=== PATIENT | male | born 1940 | race Caucasian/White ===

== ENCOUNTER 2022-10-21 14:01 | Observation (INO) ==
[2022-10-21 14:42] LABS: ABS Lymphocytes 0.5 10^3/uL (1.0-4.8); ABS Monocytes 0.7 10^3/uL (0.0-1.1); ABS Neutrophils 3.9 10^3/uL (1.5-7.6); Eosinophil % 0.9 %; Hemoglobin 13.5 g/dL (13.2-16.3); Lymphocyte % 9.3 %; Mean Corpuscular Hemoglobin 29.5 pg (27-33); Mean Corpuscular Hgb Conc 33.8 g/dL (31-36); Mean Corpuscular Volume 87.3 fL (80-97); Platelet Count 152 10^3/uL (150-450); Red Blood Count 4.58 10^6/uL (4.06-5.63); Red Cell Distribution Width 15.1 % (12-17); White Blood Count 5.1 10^3/uL (3.6-10.2)
[2022-10-21] MEDS ORDERED: Azithromycin 500 mg/250 ml NS 500 MG/250 ML BAG IVPB ONE (14:47)
[2022-10-21] MEDS ORDERED: cefTRIAXone 1 gm/50 mL D5W 1 GM/50 ML BAG IV ONE (14:47)
[2022-10-21] MEDS ORDERED: Lactated Ringers 1000 ml BAG 1,000 ML IV ONE (14:47)
[2022-10-21 14:49] LABS: INR 1.5 (0.88-1.18)
[2022-10-21] MEDS ORDERED: Albuterol 2.5mg/3 ml (0.083%) NEB.SOLN INH ONE ×2 (14:51→20:45)
[2022-10-21 14:54] LABS: Urine Appearance Clear; Urine Bilirubin Negative (Negative); Urine Blood 1+ (Negative); Urine Color Yellow; Urine Glucose 1+(50 mg/dL) (Negative); Urine Ketones Negative (Negative); Urine Nitrite Negative (Negative); Urine Protein 1+(30 mg/dL) (Negative); Urine Specific Gravity 1.012 (1.002-1.030); Urine Urobilinogen Negative (Negative)
[2022-10-21 15:10] LABS: Urine Bacteria Absent (Absent); Urine Red Blood Cell Trace(0-2/hpf) (Absent); Urine White Blood Cell Trace(0-5/hpf) (Absent)
[2022-10-21 15:26] LABS: Albumin 4.3 g/dL (3.2-5.2); Albumin/Globulin Ratio 2.3 (1-3); C Reactive Protein 41.2 mg/L (<8.01); Creatinine, Serum 1.67 mg/dL (0.67-1.17); Globulin 1.9 g/dL (2-4); Potassium 4.3 mmol/L (3.5-5.0); Total Bilirubin 0.9 mg/dL (0.2-1.0); Total Protein 6.2 g/dL (6.4-8.9); eGFR CKD-EPI 40.6 (>60)
[2022-10-21 16:05] LABS: High Sensitivity Troponin 1 Hr 27 pg/mL (<20)
[2022-10-21] MEDS ORDERED: Furosemide 20 mg/2 ml IV VIAL IV ONE (17:59)
[2022-10-22 05:16] LABS: ABS Lymphocytes 0.6 10^3/uL (1.0-4.8); ABS Monocytes 0.8 10^3/uL (0.0-1.1); ABS Neutrophils 4.3 10^3/uL (1.5-7.6); ABS Nucleated RBC 0.01 10^3/ul; Eosinophil % 0.1 %; Hematocrit 38.7 % (38-53); Hemoglobin 13.2 g/dL (13.2-16.3); Lymphocyte % 11.2 %; Mean Corpuscular Hemoglobin 29.7 pg (27-33); Mean Corpuscular Hgb Conc 34.1 g/dL (31-36); Mean Corpuscular Volume 87.3 fL (80-97); Mean Platelet Volume 7.3 fL (7.5-11.2); Nucleated Red Blood Cells % 0.1 /100 WBC (0.0-0.4); Platelet Count 149 10^3/uL (150-450); Red Blood Count 4.44 10^6/uL (4.06-5.63); Red Cell Distribution Width 15.5 % (12-17); White Blood Count 5.8 10^3/uL (3.6-10.2)
[2022-10-22 06:00] LABS: Calcium 8.7 mg/dL (8.6-10.3); Creatinine, Serum 1.88 mg/dL (0.67-1.17); eGFR CKD-EPI 35.2 (>60)
[2022-10-23 07:04] LABS: ABS Eosinophils 0.2 10^3/uL (0.0-0.5); ABS Lymphocytes 0.8 10^3/uL (1.0-4.8); ABS Monocytes 0.8 10^3/uL (0.0-1.1); ABS Neutrophils 3.1 10^3/uL (1.5-7.6); ABS Nucleated RBC 0.01 10^3/ul; Eosinophil % 3.4 %; Hemoglobin 13.2 g/dL (13.2-16.3); Lymphocyte % 15.6 %; Mean Corpuscular Hemoglobin 29.8 pg (27-33); Mean Corpuscular Hgb Conc 33.9 g/dL (31-36); Mean Corpuscular Volume 87.9 fL (80-97); Mean Platelet Volume 6.8 fL (7.5-11.2); Nucleated Red Blood Cells % 0.1 /100 WBC (0.0-0.4); Platelet Count 141 10^3/uL (150-450); Red Blood Count 4.43 10^6/uL (4.06-5.63); Red Cell Distribution Width 15.5 % (12-17); White Blood Count 4.8 10^3/uL (3.6-10.2)
[2022-10-23 07:39] LABS: Calcium 8.2 mg/dL (8.6-10.3); Creatinine, Serum 1.45 mg/dL (0.67-1.17); eGFR CKD-EPI 48.1 (>60)
[2022-10-23] MEDS ORDERED: Furosemide 20 mg/2 ml IV VIAL IV ONE (10:59)
[2022-10-23] MEDS ORDERED: cefTRIAXone 1 gm/50 mL D5W 1 GM/50 ML BAG IV SCH (14:00)
[2022-10-23 14:38] VITALS: BP 117/60
== END 2022-10-23 15:30 | disposition home or self-care (01) ==
LOC: ED 14:01 → EDHOLD 14:01 → MEDTELE 10-22 08:41
PROVIDERS: ADMIT Internal Medicine; ATTEND Internal Medicine